=== PATIENT | male | born 1945 | race Caucasian/White ===

== ENCOUNTER → 2018-06-04 | Outpatient (CLI) | payer MEDICARE ==
--- NOTE | 2018-06-04 09:18 | RAD ---
EXAM: Abdomen sonogram. HISTORY: Elevated liver enzymes laboratory values. TECHNIQUE: Sonographic imaging of the abdomen was performed. COMPARISON: None. FINDINGS: The liver is normal in size. No focal hepatic lesion is seen. There is cholelithiasis and gallbladder sludge. The kidneys are unremarkable. The pancreas, spleen and inferior vena cava are unremarkable. There is aortic atherosclerosis. The common bile duct is normal in caliber. IMPRESSION: 1. Cholelithiasis and gallbladder sludge. 2. Otherwise, unremarkable abdomen sonogram. Electronically signed by: Ellen Mcallister MD (06/04/2018 9:13 AM) [place] [id number]
== END | disposition home or self-care (01) ==
LOC: US 07:35
PROVIDERS: ATTEND Physician Assistant Medical
DX: K80.20 Calculus of gallbladder without cholecystitis without obstruction (principal); I70.0 Atherosclerosis of aorta; R74.8 Abnormal levels of other serum enzymes
CPT/HCPCS: 76700